=== PATIENT | female | born 1975 | race Caucasian/White ===

== ENCOUNTER 2022-05-11 08:04 | Emergency (ER) | payer MEDICAID ==
[~2022-05-11] VITALS: Ht 157.5 cm; Wt 54.4 kg
[2022-05-11 08:11] VITALS: BP 122/80
--- NOTE | 2022-05-11 08:15 | NUR ---
Patient ambulated to bed 2 with steady/even gait.
--- NOTE | 2022-05-11 08:25 | NUR ---
46 y/o F BIB self from home c/o body aches and insonmia x 5 days.Patient A&Ox4, also states 3 weeks of difficulty swallowing and reports 2 weeks ago patient had a witnessed fall and seizures. Patient states seen in ED with negative blood work, discharged with medications with relief to symptoms, however, does not remember diagnosis. Pt states occassional headaches, chest pressure, SOB and nausea. Denies fever, chills, vomiting, diarrhea, cold-like symptoms, dysuria. Denies medciations prior to arrival. Pt placed onto athletic monitor. Lung sounds CTA. Bed locked in lowest position, side rails x 1. PMH: tubal ligation, thyroid dz NKDA Meds: Denies
--- NOTE | 2022-05-11 08:25 | NUR ---
Dr. Valdez is evaluating patient at bedside
[2022-05-11] MEDS ORDERED: ZOLP5TAB1 PO ×4 (08:55→15:49)
--- NOTE | 2022-05-11 09:05 | NUR ---
Patient discharged with v/s stable. Written and verbal after care instructions given and explained. Patient alert, oriented and verbalized understanding of instructions. Ambulatory with steady gait. All questions addressed prior to discharge. ID band removed. Patient advised to follow up with PMD. Rx of Bipin given. Patient educated on indication of medication including possible reaction and side effects. Opportunity to ask questions provided and answered.
== END 2022-05-11 09:05 | disposition home or self-care (01) ==
LOC: MED 08:04
DX: G47.00 Insomnia, unspecified (principal); M79.18 Myalgia, other site; R51.9 Headache, unspecified; R07.9 Chest pain, unspecified; R06.02 Shortness of breath; R11.0 Nausea; R10.9 Unspecified abdominal pain; R56.9 Unspecified convulsions; Z86.39 Personal history of other endocrine, nutritional and metabolic disease; Z98.51 Tubal ligation status; Z79.899 Other long term (current) drug therapy
CPT/HCPCS: 99283